=== PATIENT | female | born 1980 | race Two or more races ===

== ENCOUNTER → 2019-03-11 | Outpatient (CLI) | payer OTHER ==
--- NOTE | 2019-03-11 13:28 | RAD ---
EXAM: Bilateral feet, 3 views. HISTORY: Pain. COMPARISON: None. FINDINGS: 3 views of both feet are obtained. There is no fracture, dislocation or subluxation. IMPRESSION: No acute osseous finding. Electronically signed by: Tri Frazier MD (03/11/2019 1:25 PM) [place] [id number]
== END | disposition home or self-care (01) ==
LOC: RAD 13:00
PROVIDERS: ATTEND Family Medicine
DX: M72.2 Plantar fascial fibromatosis (principal)
CPT/HCPCS: 73620

== ENCOUNTER 2019-04-26 05:08 | Emergency (ER) | payer OTHER ==
[~2019-04-26] VITALS: Ht 172.7 cm; Wt 85.0 kg
[2019-04-26 05:20] VITALS: BP 101/71
[2019-04-26] MEDS ORDERED: METH4TAB2 PO (05:48)
[2019-04-26] MEDS ORDERED: ALBU2.5V8 IH (05:48)
--- NOTE | 2019-04-26 05:53 | PHYS DOC ---
Past History Past Medical History: No Pertinent History Past Surgical History: No Surgical History Alcohol Use: None Drug Use: None Adult General Chief Complaint Chief Complaint: COUGH HPI HPI Patient is a 39 yo f with cough, congestion sinus pressure no fever that she knows of coughing up green/yellow mucus three days worse with time no relief with otc agents Review of Systems Review of Systems Constitutional: Denies fever or chills [] Musculoskeletal: Denies back pain or joint pain [] Integument: Denies rash or skin lesions [] Neurologic: Denies headache, focal weakness or sensory changes [] All other systems were reviewed and found to be within normal limits, except as documented in this note. Allergies Allergies Allergies Coded Allergies Type Severity Reaction Last Updated Verified Penicillins Allergy Severe TONGUE SWELLING 04/26/19 Yes clindamycin Allergy Severe TONGUE SWELLING 04/26/19 Yes Physical Exam Physical Exam Constitutional: Well developed, well nourished, no acute distress, non-toxic appearance. [] HENT: Normocephalic, atraumatic, bilateral external ears normal, oropharynx moist, no oral exudates, nose normal. [] sinus ttp noted mild b/l lymphadenopath 0.5 cm b/l Eyes: PERRLA, EOMI, conjunctiva normal, no discharge. [] Neck: Normal range of motion, no tenderness, supple, no stridor. [] Cardiovascular:Heart rate regular rhythm, no murmur [] Lungs & Thorax: Bilateral breath sounds clear to auscultation [] prolongedexpiratory phase no overt wheeze. Abdomen: Bowel sounds normal, soft, no tenderness, no masses, no pulsatile masses. [] Skin: Warm, dry, no erythema, no rash. [] Back: No tenderness, no CVA tenderness. [] Extremities: No tenderness, no cyanosis, no clubbing, ROM intact, no edema. [] Neurologic: Alert and oriented X 3, normal motor function, normal sensory function, no focal deficits noted. [] Psychologic: Affect normal, judgement normal, mood normal. [] Current Patient Data Vital Signs Vital Signs Date Time Temp Pulse Resp B/P (MAP) Pulse Ox O2 Delivery O2 Flow Rate FiO2 04/26/19 05:20 98.5 68 18 96 Room Air EKG EKG [] Radiology/Procedures Radiology/Procedures [] Course & Med Decision Making Course & Med Decision Making Pertinent Labs and Imaging studies reviewed. (See chart for details) []suspect viral uri most likely cxr neg for pna. my read. try proair and medrol dose toy no obvious evidence for pna at this time Honey Disclaimer Honey Disclaimer This electronic medical record was generated, in whole or in part, using a voice recognition dictation system. Departure Departure: Impression: Primary Impression: Cough Disposition: HOME, SELF-CARE Condition: STABLE Patient Instructions: Cough, Adult, [id number] Scripts Albuterol Sulfate (PROAIR HFA INHALER) 8.5 Gm Hfa.aer.ad 2 PUFF IH PRN Q4-6HRS PRN for wheezing for 21 Days, #1 INHALER 0 Refills Prov: AYSE RASHEED MD 04/26/19 Methylprednisolone (MEDROL) 4 Mg Tab.ds.pk 1 PKG PO UD for cough, #1 PKG Prov: AYSE RASHEED MD 04/26/19 AYSE RASHEED MD Apr 26, 2019 05:53
--- NOTE | 2019-04-26 06:37 | RAD ---
INDICATION: Cough COMPARISON: None. FINDINGS: Single view of chest obtained. Cardiac silhouette mildly prominent but likely exaggerated by portable technique. Left lung base is not well evaluated secondary to lack of lateral view but no definite consolidation elsewhere in the lungs. IMPRESSION: * No definite focal airspace consolidation. Electronically signed by: Rodri Monzon MD (04/26/2019 6:35 AM) [facility]
== END 2019-04-26 05:52 | disposition home or self-care (01) ==
LOC: ER 05:08
DX: R05 Cough (principal); R09.81 Nasal congestion; Z88.0 Allergy status to penicillin; Z88.1 Allergy status to other antibiotic agents
CPT/HCPCS: 71045; 99283